=== PATIENT | female | born 1965 | race African-American/Black ===

== ENCOUNTER 2018-02-23 11:51 | Emergency (ER) | payer MEDICAID ==
[~2018-02-23] VITALS: Ht 177.8 cm; Wt 48.1 kg
[2018-02-23 11:55] VITALS: BP 131/92
--- NOTE | 2018-02-23 12:18 | Emergency Room Report ---
History of Present Illness General Chief Complaint: Pain Source: Patient Present Illness HPI 53-year-old female patient presents ER complaining of lump in her breast for the past 4 years. States that she is previously seen her provider and was referred to A breast ultrasound however she did not get it. Denies change in size. Denies worsening of symptoms. Denies fever, weight loss, redness, drainage. After discussing breast mass, informed patient to change into gown, on reexamination patient also complaining of chest pain for the past few months. Denies chest pain currently. Reports chest pain is intermittent. Does not occur with onset of exercise. Reports history of smoking, states used to smoke multiple cigarettes/day and now only smokes 1-2 cigars/day. denies history of stroke or heart attack. Denies other past medical history. Denies shortness of breath, abdominal pain. Patient's partner is currently be seen in the ER for laceration patient and she "decided to be evaluated too". denies recent illness or cough. denies recent travel. Denies weight loss. Allergies: Coded Allergies: ACETAMINOPHEN (Verified Allergy, Unknown, 02/23/18) HYDROCODONE (Verified Allergy, Unknown, 02/23/18) Patient History Past Medical History: see triage record Last Menstrual Period: NA Now: No Reviewed Nursing Documentation: PMH: Agreed; PSxH: Agreed Nursing Documentation-PMH Past Medical History: No Stated History Review of Systems All Other Systems: negative except mentioned in HPI Physical Exam Vital Signs Date Time Temp Pulse Resp B/P (MAP) Pulse Ox O2 Delivery O2 Flow Rate FiO2 02/23/18 11:55 98.2 84 16 131/92 95 Room Air 98.2 Sp02 EP Interpretation: reviewed, normal General Appearance: well appearing, no apparent distress, alert, GCS 15, non- toxic Head: normocephalic, atraumatic Eyes: bilateral eye normal inspection, bilateral eye PERRL ENT: hearing grossly normal, normal pharynx, no angioedema, normal voice, uvula midline, moist mucus membranes Neck: full range of motion Respiratory: lungs clear, normal breath sounds, no rhonchi, no respiratory distress, no accessory muscle use, no wheezing, speaking full sentences, other - left breast at 4 o'clock position: 1 cm palpable nodule, no overlying erythema or edema, no axillary lymphadenopathy, no took nipple discharge, no tenderness to palpation Cardiovascular #1: regular rate, rhythm, no edema Gastrointestinal: non tender, soft, no mass, non-distended, no guarding, no rebound Musculoskeletal: back normal, digits/nails normal, gait/station normal, normal range of motion, non-tender Neurologic: alert, oriented x3, responsive, motor strength/tone normal, sensory intact Psychiatric: mood/affect normal Skin: no rash Lymphatic: no adenopathy Medical Decision Making PA Attestation Dr. Farr is my supervising Physician whom patient management has been discussed with. Diagnostic Impression: Primary Impression: Breast cyst Additional Impression: Atypical chest pain ER Course Pt. presents to the ED c/o breast lump and history of intermittent chest pain, no chest pain currently. Ddx considered but are not limited to Increased right ear cysts, nausea, abscess , malignancy, MA, COPD, URI. no cough or hemoptysis, no tachycardia, no recent immobilization, no history of cancer, low suspicion for PE per well's criteria. Will order EKG and chest x-ray to check to underlying pathology and determine need for further cardiac workup at this time. Vital signs: are WNL, pt. is afebrile. Mild elevation of blood pressure, denies chest pain, SOB, abdominal pain at this time. Not on medications for high blood pressure. Blood pressure mildly elevated at this time, will continue to monitor. Denies chest pain, shortness of breath, vision changes, does not require acute intervention at ER at this time. Follow with primary care provider discuss further treatment and referral. Advised on low-sodium diet, advised on diet and exercise. ER COURSE: Small palpable nodule in left breast at 4 o'clock position, no overlying erythema or edema, no fluctuance or induration, low suspicion for abscess. Patient states she has had the lump for multiple years, instructed patient to follow-up with primary care provider and get referral to mammogram. Provide patient with contact information for free low-cost healthcare clinics to establish care, contact [facility] to get name of primary care provider. Provided with contact information for surgeon to discuss treatment options. [facility] to schedule appointment. EKG unremarkable, nausea elevation or arrhythmia. Chest x-ray negative. low suspicion for MA or CHF, does not require labs or workup currently. advised patient to follow-up bushing and broach operator for further testing and treatment as outpatient. Take Tylenol for pain symptoms. Patient denies acute chest pain at this time, shortness of breath, no headache, does not require cardiac workup at this time. Okay for outpatient follow-up and evaluation with bushing and broach operator. ER precautions given. Don't smoke. DISCHARGE: At this time pt is stable for d/c to home. Patient is resting comfortably, in no acute distress, nontoxic appearing, talking without difficulty. Patient to take medications as instructed Will provide with patient care instructions and any necessary prescriptions. Care plan and follow-up instructions provided. Patient instructed to follow-up with primary care provider in 3 - 5 days. Patient questions asked and answered. Patient reports understanding and agreement to treatment plan. ER precautions given. Patient instructed to return to ER immediately for any new or worsening of symptoms including but not limited to increasing SOB, persistent fever, chest pain, intractable vomiting. - Please note that this Emergency Department Report was dictated using [employer] technology software, occasionally this can lead to erroneous entry secondary to interpretation by the dictation equipment. EKG Diagnostic Results Rate: normal Rhythm: NSR ST Segments: no acute changes ASA given to the pt in ED: No PA Scribe Text Lior Dubon PA-C Rhythm Strip Diag. Results EP Interpretation: yes Rate: 81 Rhythm: NSR, no PVC's, no ectopy PA Scribe Text Lior Dubon PA-C Chest X-Ray Diagnostic Results Chest X-Ray Diagnostic Results : Chest X-Ray Ordered: Yes # of Views/Limited/Complete: 1 View Indication: Chest Pain EP Interpretation: Yes PA Xray: Interpretation reviewed, by supervising MD, and agrees with findings. Interpretation: no consolidation, no effusion, no pneumothorax, no acute cardiopulmonary disease Impression: No acute disease PA Scribe Text Lior Dubon PA-C Last Vital Signs Date Time Temp Pulse Resp B/P (MAP) Pulse Ox O2 Delivery O2 Flow Rate FiO2 02/23/18 11:55 98.2 84 16 131/92 95 Room Air 98.2 Disposition: HOME, SELF-CARE Condition: Stable Referrals: NOT CHOSEN IPA/MD,REFERRING (PCP) Patient Instructions: Breast Cyst, Nonspecific Chest Pain, [id number] Additional Instructions: Followup with primary care provider in 3 -5 days. discuss referral bushing and broach operator for further evaluation and workup. Establish care with primary care provider, contact insurance to find a primary care provider. Call and follow-up with primary low-cost healthcare clinics. Contact surgeon to discuss treatment options for removal of breast cysts. Patient needs outpatient mammogram and possible biopsy. Don't smoke. Take medications as directed. Patient questions asked and answered. ER precautions given, patient instructed to return to ER immediately for any new or worsening of symptoms. Vish Dubon Feb 23, 2018 12:18
[2018-02-23 13:29] VITALS: BP 131/92
--- NOTE | 2018-02-23 14:14 | Diagnostic Imaging Report ---
EXAM: XR Chest, 1 View CLINICAL HISTORY: PAIN TECHNIQUE: Frontal view of the chest. COMPARISON: No relevant prior studies available. FINDINGS: Lungs: Unremarkable. The lungs appear clear. No confluent pulmonary opacities. Pleural space: Unremarkable. The costophrenic angles are sharp. No visible pneumothorax. Heart: Unremarkable. No cardiomegaly. Mediastinum: Unremarkable. Bones/joints: Unremarkable. Vasculature: Atherosclerotic calcifications are noted within the aortic arch. IMPRESSION: No acute findings.
--- NOTE | 2018-02-26 17:35 | Cardiology Report ---
APPROVED REPORT EKG Measurement Heart [id number] Normal sinus rhythm Possible Left atrial enlargement Left ventricular hypertrophy Cannot rule out Septal infarct, age undetermined Abnormal ECG
== END 2018-02-23 13:29 | disposition home or self-care (01) ==
LOC: EMR 12:10
DX: R07.9 Chest pain, unspecified (principal); N60.02 Solitary cyst of left breast; Z88.6 Allergy status to analgesic agent; F17.210 Nicotine dependence, cigarettes, uncomplicated
CPT/HCPCS: 71045; 93005; 99283